=== PATIENT | female | born 1980 ===

== ENCOUNTER → 2018-05-25 20:55 | Outpatient (REF) | payer OTHER, SELFPAY ==
[2018-05-25 22:07] LABS: HCG Quantitative /Beta subunit 2040.6 mIU/mL
== END ==
LOC: LAB 20:55
PROVIDERS: Visit Provider Naturopath
DX: Z32.01 Encounter for pregnancy test, result positive (principal)
CPT/HCPCS: 36415; 84702; 86900; 86901